=== PATIENT | male | born 1990 | race Asian ===

== ENCOUNTER 2016-04-04 20:26 | Emergency (ER) | payer OTHER ==
[2016-04-04 21:19] VITALS: BP 156/90
[2016-04-04] MEDS ORDERED: Ibuprofen TAB* 400 MG PO ONE (21:23)
--- NOTE | 2016-04-04 22:04 | UC ---
Respiratory Complaint HPI - HPI Summary HPI Summary: 26 yo male with 4-5 day hx of f/c, sore throat, nasal congestion, cough and diarrhea about 10 x day no abd pain no sob no CP - History of Current Complaint Chief Complaint: UCRespiratory Stated Complaint: ST,CONGESTION, DIARRHEA Time Seen by Provider: 04/04/16 21:42 Hx Obtained From: Patient Onset/Duration: Gradual Onset, Lasting Days Timing: Constant Severity Initially: Moderate Severity Currently: Severe Pain Intensity: 8 Pain Scale Used: 0-10 Numeric Character: Cough: Nonproductive Aggravating Factors: Nothing Alleviating Factors: Nothing Associated Signs And Symptoms: Positive: Fever, Chills, Nasal Congestion, Hoarseness, Sinus Discomfort - Allergies/Home Medications Allergies/Adverse Reactions: Allergies Allergy/AdvReac Type Severity Reaction Status Date / Time No Known Allergies Allergy Unverified 04/04/16 21:20 Home Medications: Home Medications GuaiFENesin DM* [Robitussin DM*] 04/04/16 [History] Ibuprofen TAB* [Advil TAB*] 04/04/16 [History] PMH/Surg Hx/FS Hx/Imm Hx Previously Healthy: Yes - Surgical History Surgical History: None - Family History Known Family History: Positive: Hypertension - Social History Alcohol Use: Occasionally Substance Use Type: None Smoking Status (MU): Never Smoked Tobacco Review of Systems Constitutional: Fever, Chills, Fatigue ENT: Sore Throat, Nasal Discharge Respiratory: Cough Gastrointestinal: Diarrhea Musculoskeletal: Arthralgia, Myalgia Neurological: Negative Psychological: Negative All Other Systems Reviewed And Are Negative: Yes Physical Exam Triage Information Reviewed: Yes Appearance: Well-Appearing, No Pain Distress, Well-Nourished Vital Signs: Initial Vital Signs Temp 101.4 F 04/04/16 21:17 Pulse 123 04/04/16 21:17 Resp 18 04/04/16 21:17 BP 156/90 04/04/16 21:17 Pulse Ox 96 04/04/16 21:17 Vital Signs Reviewed: Yes Eyes: Positive: Conjunctiva Clear ENT: Positive: Pharyngeal erythema, Nasal congestion, Nasal drainage, TMs normal. Negative: Trismus, Muffled/hoarse voice Neck: Positive: Supple, Nontender, No Lymphadenopathy Respiratory: Positive: Lungs clear, Normal breath sounds, No respiratory distress, No accessory muscle use Cardiovascular: Positive: RRR, No Murmur Musculoskeletal: Positive: Strength Intact, ROM Intact Neurological: Positive: Alert, Muscle Tone Normal Psychological: Positive: Normal Response To Family, Age Appropriate Behavior Skin Exam: Normal UC Diagnostic Evaluation - Laboratory O2 Sat by Pulse Oximetry: 96 Respiratory Course/Dx - Course Course Of Treatment: RS(-), RF(-),CXR(-) - Differential Dx/Diagnosis Provider Diagnoses: sinusitis. pharyngitis. bronchitis. acute diarrhea Discharge - Discharge Plan Condition: Stable Disposition: HOME Prescriptions: Cefuroxime Axetil [Ceftin 250 MG] 250 mg PO BID #20 tab Prednisone 60 mg PO DAILY #6 tab Patient Education Materials: Pharyngitis (ED), Sinusitis (ED), Acute Diarrhea ( ED) Referrals: Omari Hobbs MD [Primary Care Provider] - 2 Days Additional Instructions: rest fluids tylenol bring in stool for studies blood work is pending
--- NOTE | 2016-04-04 22:44 | RAD ---
Indication: Fever and cough. When compared to previous exam of August 27, 2009 significant change is noted. 2 views of the chest including dual energy PA views demonstrate no mediastinal shift. Heart is of normal size and configuration. Lung waite are clear. IMPRESSION: No active cardiopulmonary disease is noted.
[2016-04-04] MEDS ORDERED: ceFUROXime TAB(*) 250 MG PO ONE (22:53)
[2016-04-04] MEDS ORDERED: predniSONE TAB* 20 MG PO ONE (22:54)
[2016-04-05 11:35] LABS: Hematocrit 49 % (42-52); Hemoglobin 16.3 g/dl (14.0-18.0); Mean Corpuscular HGB Conc 34 g/dl (31-36); Mean Corpuscular Hemoglobin 29 pg (27-31); Mean Corpuscular Volume 87 fL (80-94); Mean Platelet Volume 10 um3 (7.4-10.4); Red Blood Count 5.61 10^6/ul (4.0-5.4); Red Cell Distribution Width 13 % (10.5-15); White Blood Count 7.6 10^3/ul (3.5-10.8)
[2016-04-05 11:36] LABS: Add Diff/Slide Review? Slide Review Added; Comments Flag Yes
[2016-04-05 12:02] LABS: Albumin 4.5 g/dL (3.2-5.2); BUN/Creatinine Ratio 9.2 (8-20); Calcium 9.2 mg/dL (8.6-10.3); EGFR African American 96.6 (>60); EGFR Non-African American 75.1 (>60); Potassium 3.7 mmol/L (3.5-5.0); Total Bilirubin 0.9 mg/dL (0.2-1.0); Total Protein 7.5 g/dL (6.4-8.9)
== END 2016-04-04 23:14 | disposition home or self-care (01) ==
LOC: UCEAST 20:26
DX: J32.9 Chronic sinusitis, unspecified (principal); J02.9 Acute pharyngitis, unspecified; J40 Bronchitis, not specified as acute or chronic; R19.7 Diarrhea, unspecified
CPT/HCPCS: 36415; 71020; 80053; 85025; 87502; 87651; 99212; A9270-GY; G0463; J7512